=== PATIENT | female | born 2005 | race Caucasian/White ===

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

== ENCOUNTER 2024-05-04 21:21 | Emergency (ER) | payer OTHER, SELFPAY ==
[~2024-05-04] VITALS: Ht 162.6 cm; Wt 84.8 kg
[2024-05-04 22:09] LABS: BASO % 0.4 % (0.0-1.0); EOS # 0.1 10^3/uL (0.0-0.5); EOS % 1.2 % (0.0-3.0); HEMATOCRIT 36.5 % (36.0-47.0); HEMOGLOBIN 12.8 g/dl (12.0-15.5); LYMPH # 2.9 10^3/uL (1.5-5.0); LYMPH % 27.4 % (24.0-44.0); MEAN CORPUSCULAR HEMOGLOBIN 29.2 pg (27.0-33.0); MEAN CORPUSCULAR HGB CONC 35.1 g/dl (32.0-36.5); MEAN CORPUSCULAR VOLUME 83.3 fl (80.0-96.0); MONO # 0.5 10^3/uL (0.0-0.8); MONO % 4.4 % (2.0-8.0); NEUTROPHILS # 7.1 10^3/uL (1.5-8.5); NEUTROPHILS % 66.3 % (36.0-66.0); PLATELET COUNT, AUTOMATED 394 10^3/uL (150-450); RED BLOOD COUNT 4.38 10^6/uL (4.00-5.40); WHITE BLOOD COUNT 10.7 10^3/uL (4.0-10.0)
[2024-05-04 22:43] LABS: BLOOD UREA NITROGEN 10 MG/DL (9-23); CALCIUM LEVEL 9.5 MG/DL (8.5-10.1); CARBON DIOXIDE LEVEL 25 MMOL/L (20-31); CHLORIDE LEVEL 105 MMOL/L (98-107); CREATININE FOR GFR 0.65 MG/DL (0.55-1.30); GLUCOSE, FASTING 103 MG/DL (60-100); SODIUM LEVEL 139 MMOL/L (136-145)
[2024-05-04 22:56] LABS: HCG, SERUM QUANTITATIVE 3538.1 MIU/ML (<4.2)
[2024-05-04] MEDS: ACETAMINOPHEN 325 MG TAB PO ONE (23:51)
[2024-05-04 23:54] LABS: KETONE, URINE AUTO RFX TRACE mg/dL (NEGATIVE); LEUKOCYTE ESTERASE UR AUTO RFX NEGATIVE (NEGATIVE); NITRITE, URINE AUTO RFX NEGATIVE (NEGATIVE)
[2024-05-04 23:55] LABS: RBC, URINE AUTO RFX 0 /HPF (0-3); SQUAM EPITHELIAL CELL UR AURFX 2 /HPF (0-6); WBC, URINE AUTO RFX 0 /HPF (0-3)
[2024-05-05 02:29] VITALS: BP 101/53; TEMP 97.3; O2SAT 97
== END 2024-05-05 02:34 | disposition home or self-care (01) ==
LOC: M ED 21:21
DX: R10.84 Generalized abdominal pain (principal); F17.290 Nicotine dependence, other tobacco product, uncomplicated; F12.10 Cannabis abuse, uncomplicated

== ENCOUNTER 2024-12-01 06:10 | Day surgery (SDC) | payer OTHER ==
[~2024-12-01] VITALS: Ht 162.6 cm; Wt 91.3 kg
[2024-12-01] MEDS ORDERED: LR 1,000 ML IV SCH ×2 (07:05→08:15)
[2024-12-01] MEDS ORDERED: LIDOCAINE 2% 100 MG/5 ML SDV (FOR ANES.) As Ordered ONE (07:10)
[2024-12-01] MEDS ORDERED: ROCURONIUM BROMIDE 50MG/5ML VIAL As Ordered ONE (07:10)
[2024-12-01] MEDS ORDERED: MIDAZOLAM INJ 2 MG/2 ML VIAL As Ordered ONE (07:11)
[2024-12-01] MEDS ORDERED: DEPO150I12 IM (07:12)
[2024-12-01] MEDS ORDERED: BACI1TAB PO (07:12)
[2024-12-01] MEDS: OXYMETAZOLINE 0.05% NASAL SPRAY As Ordered ONE (07:12)
[2024-12-01] MEDS ORDERED: dexAMETHasone 4 MG/ML 1 ML VIAL As Ordered ONE (07:44)
[2024-12-01] MEDS ORDERED: ACETAMINOPHEN 1000MG/100ML IV BAG As Ordered ONE (07:47)
[2024-12-01] MEDS ORDERED: SUGAMMADEX SODIUM 500 MG/5 ML VIAL As Ordered ONE (07:57)
[2024-12-01] MEDS ORDERED: ONDANSETRON 4MG 2ML VIAL As Ordered ONE (07:58)
[2024-12-01] MEDS: HYDROMORPHONE HCL 0.5 MG/0.5 ML SYRINGE IV PRN (08:38)
[2024-12-01] MEDS: ONDANSETRON 4MG 2ML VIAL IV PRN (08:38)
[2024-12-01 09:23] VITALS: BP 110/79; TEMP 96.7; O2SAT 98
== END 2024-12-01 09:58 | disposition home or self-care (01) ==
LOC: M SDC 06:10
PROVIDERS: ATTEND Otolaryngology
DX: J35.3 Hypertrophy of tonsils with hypertrophy of adenoids (principal); F17.290 Nicotine dependence, other tobacco product, uncomplicated
CPT/HCPCS: 42821; 81025; 88302; J0131; J0665; J1100; J1171; J2250; J2405; J3010